=== PATIENT | male | born 1985 | race Caucasian/White ===

== ENCOUNTER 2019-09-08 14:27 | Inpatient (IN) | payer SELFPAY ==
[2019-09-08] VITALS (14 sets, daily range): BP systolic 126–162; BP diastolic 58–86; PULSE 83–111; RESP 14–20; TEMP 36.3–36.9; O2SAT 94–100; BMI 33.3
--- NOTE | ~2019-09-08 | CT_ITS ---
EXAMINATION: CT abdomen pelvis w con EXAM DATE: 09/08/2019 15:26 INDICATION: Right lower quadrant, epigastric pain. TECHNIQUE: Spiral CT of the abdomen and pelvis was performed following intravenous injection of 100 m L Omnipaque 350. Axial, coronal and sagittal images were reviewed. The dose-length product (DLP) fo r this examination was 857.43 mGy-cm. The exposure was tailored according to patient size (auto mA e xposure control), and iterative reconstruction (ASIR) was used as additional dose reduction technique . There is no prior study for comparison. FINDINGS: There is moderate amount of free intraperitoneal gas, mostly located in the nondependent an terior portion of the abdomen but with multiple small foci adjacent to the gastric cardia, where ther e is wall thickening, edema, probably perforated peptic ulcer disease in an atypical location. This i s best visualized on the coronal sequence. I discussed this finding with Mayur Basurto MD at 08/29 15:32 CDT. The liver, spleen, adrenal glands and pancreas are unremarkable. Gallbladder is unremarkable. No bi liary obstruction. Portal and splenic veins are patent. Kidneys enhance symmetrically. There is no hydronephrosis. The prostate is unremarkable. The bladder is unremarkable. There is no retroperi toneal or pelvic lymphadenopathy. The appendix is normal. Trace left pleural effusion, and small amount of free pelvic fluid. The hui g bases are unremarkable. The bones are unremarkable. IMPRESSION: Moderate amount of free intraperitoneal gas with source most likely the gastric cardia, m ost likely perforated peptic ulcer disease. Gastric cancer much less likely given patient's age. Reviewed, dictated and finalized at location A. IMPRESSION: Moderate amount of free intraperitoneal gas with source most likely the gastric cardia, most likely perforated peptic ulcer disease. Gastric cance r much less likely given patient's age.
[2019-09-08] MEDS: SODIUM CHLORIDE 0.9% IV 1,000 ML 999 ML IV CONT (14:48)
--- NOTE | 2019-09-08 14:50 | PC.NURSE ---
IVF initiated. Pt denies pain and nausea at present.
[2019-09-08 14:55] LABS: Basophils Absolute Auto 0.1 K/mm3 (0.0-0.1); Basophils Percent Auto 0.4 % (0.2-1.2); Eosinophils Percent Auto 0.1 % (0-4.4); Hematocrit 48.3 % (42.0-52.0); Hemoglobin 16.3 g/dL (14.0-18.0); Immature Granulocyte Absolute 0.09 K/mm3 (0.00-0.031); Immature Granulocyte Percent A 0.5 % (0-0.5); Lymphocytes Absolute Auto 1.24 K/mm3 (0.9-3.2); Lymphocytes Percent Auto 7.5 % (18.3-44.2); Mean Corpuscular HGB Conc 33.7 g/dl (32-36); Mean Corpuscular Hemoglobin 29.6 pg (26-34); Mean Corpuscular Volume 87.7 fl (80-100); Mean Platelet Volume 10.3 fl (7.4-10.4); Monocytes Absolute Auto 1.2 K/mm3 (0.1-0.6); Monocytes Percent Auto 7.3 % (2.6-8.5); Neutrophils Absolute Auto 13.9 K/mm3 (1.3-6.7); Neutrophils Percent Auto 84.2 % (45.5-73.1); Platelet Count Result 247 k/mm3 (150-375); Red Blood Count 5.51 M/mm3 (4.6-6.20); Red Cell Distribution Width 12.6 % (11.5-14.5); White Blood Count 16.6 K/mm3 (4.5-10.0)
[2019-09-08 14:59] LABS: Add Urine Microscopic? YES; Appearance Urine Clear (Clear); Bacteria Urine Trace /hpf; Bilirubin Urine Negative (Negative); Blood Urine Negative (Negative); Color Urine Yellow (Yellow); Glucose Urine UA Negative (Negative); Ketones Urine 2+ mg/dL (Negative); Leukocyte Esterase Ur Negative LEU/UL (Negative); Mucus Urine Rare /lpf; Nitrate Urine Negative (Negative); Protein Urine Negative (Negative); RBC Urine 0-2 /hpf (0-2); Specific Grav Ur 1.014 (1.001-1.035); Urobilinogen Urine Negative mg/dL (<2.0); WBC Urine 0-3 /hpf
[2019-09-08 15:06] LABS: Alanine Aminotransferase 17 U/L (4-50); Albumin Level 4.8 g/dL (3.5-5.1); Alkaline Phosphatase 57 U/L (38-126); Aspartate Amino Transferase 21 U/L (17-59); Bilirubin,Total 3.1 mg/dL (0.2-1.3); Blood Urea Nitrogen 7 mg/dL (9-20); Carbon Dioxide 24 mmol/L (22-30); Chloride 101 mmol/L (98-107); Estimated Glomerular Filt Rate > 60; Glucose 100 mg/dL (75-110); Lipase 56 U/L (23-300); Sodium 136 mmol/L (137-145)
--- NOTE | 2019-09-08 15:43 | ED.ABDPAIN ---
HPI - Abdominal Pain General Chief Complaint: Abdominal Pain Stated Complaint: Abd pain Time Seen by Provider: 09/08/19 14:32 History of Present Illness HPI narrative: Patient is a 34-year-old male who presents the ER with abdominal pain going on since yesterday. Bloating and uncomfortable. Mainly in the epigastrium. No aggravating or alleviating factors. Seen at an outside hospital and had x-rays performed that told him he had gas. Reports he took some Pepcid without relief pain. Symptoms persisted so he presented for further evaluation. No fevers or chills or sweats. Reports he is taking some ibuprofen for this but does not take NSAIDs habitually. Patient does drink alcohol regularly. Patient denies increase in flatus or belching. Related Data Home Medications Medication Instructions Recorded Confirmed No Home Medications 09/08/19 09/08/19 Allergies Allergy/AdvReac Type Severity Reaction Status Date / Time No Known Allergies Allergy Verified 09/08/19 14:40 Review of Systems Review of Systems: All systems reviewed & are unremarkable except as noted in HPI and below Constitutional: Constitutional: Denies chills, Denies fever(s) and Denies weakness ENT: Denies nasal congestion and Denies sore throat Cardiovascular: Cardiovascular: Denies chest pain and Denies radiating jaw, neck or arm pain Respiratory: Respiratory: Denies cough, Denies dyspnea and Denies wheezing Gastrointestinal: Gastrointestinal: Reports abdominal pain, Reports bloating, Denies heartburn, Denies diarrhea, Denies nausea and Denies vomiting PMFSH Past Medical History Medical History (Updated 09/08/19 @ 16:19 by Mayur Basurto MD) Healthy adult male Surgical History Surgical History (Updated 09/08/19 @ 16:14 by Mayur Basurto MD) No significant past surgical history Social History Social History (Updated 09/08/19 @ 16:15 by Mayur Basurto MD) Alcohol intake: current Gender identity (if verbalized by the patient): Male Exam Narrative: Exam Narrative: GENERAL: Well-appearing, well-nourished, and in no acute distress. HEAD: Normocephalic, atraumatic. ENT: Mucous membranes moist. CHEST: Clear to auscultation. No respiratory distress. HEART: Regular rate and rhythm. No murmur heard. Normal peripheral pulses. ABDOMEN: Soft, mild epigastric and right lower quadrant tenderness without rebound or guarding, nondistended, normal active bowel sounds. EXTREMITIES: Normal range of motion. No edema. SKIN: Warm, dry, no rash. NEURO: Alert and oriented x3. PSYCH: Normal mood and affect. Course Course Emergency Course: Patient informed of results. Surgery consulted. Patient to be n.p.o. Zosyn and protonix ordered. Vital Signs Vital signs: Vital Signs Temperature 98.0 F 09/08/19 14:33 Pulse Rate 101 H 09/08/19 14:33 Respiratory Rate 16 09/08/19 14:33 Blood Pressure 148/66 H 09/08/19 14:33 Pulse Oximetry 99 09/08/19 14:33 Temperature 98.0 F 09/08/19 14:33 Pulse Rate 83 09/08/19 15:46 Respiratory Rate 18 09/08/19 15:46 Blood Pressure 137/58 L 09/08/19 15:46 Pulse Oximetry 100 09/08/19 15:46 MDM - Abdominal Pain Lab Data Result diagrams: 09/08/19 14:46 09/08/19 14:46 Labs: Lab Results 09/08/19 09/08/19 09/08/19 Range/Units 14:46 14:46 14:46 WBC 16.6 H (4.5-10.0) K/mm3 RBC 5.51 (4.6-6.20) M/mm3 Hgb 16.3 (14.0-18.0) g/dL Hct 48.3 (42.0-52.0) % MCV 87.7 (80-100) fl MCH 29.6 (26-34) pg MCHC 33.7 (32-36) g/dl RDW 12.6 (11.5-14.5) % Plt Count 247 (150-375) k/mm3 MPV 10.3 (7.4-10.4) fl Immature Gran % (Auto) 0.5 (0-0.5) % Neut % (Auto) 84.2 H (45.5-73.1) % Lymph % (Auto) 7.5 L (18.3-44.2) % [place] % (Auto) 7.3 (2.6-8.5) % Eos % (Auto) 0.1 (0-4.4) % Baso % (Auto) 0.4 (0.2-1.2) % Lymph # (Auto) 1.24 (0.9-3.2) K/mm3 [place] # (Auto) 1.2 H (0.1-0.6) K/mm3 E
[2019-09-08] MEDS: PANTOPRAZOLE SODIUM IV 40 MG VIAL IV PUSH (16:02)
--- NOTE | 2019-09-08 16:32 | WPDANESEPP ---
Anes - Eval Pre Procedure Procedure: Exploratory Laparotomy Date/Time: 09/08/19 16:32 Surgeon: Dr Serrano Preop Diagnosis: Intraperitoneal free air, probable perforated peptic ulcer disease Pre Op Diagnosis: Perforated Ulcer Patient Data Age: 34 Gender: M Height: Weight: Last Vital Signs Temp 36.7 C 09/08/19 14:33 Pulse 83 09/08/19 15:46 Resp 18 09/08/19 15:46 BP 137/58 L 09/08/19 15:46 Pulse Ox 100 09/08/19 15:46 Allergies Allergy/AdvReac Type Severity Reaction Status Date / Time No Known Allergies Allergy Verified 09/08/19 14:40 Home Medications Medication Instructions Recorded Confirmed Type No Home Medications 09/08/19 09/08/19 History Laboratory Tests 09/08/19 09/08/19 09/08/19 14:46 14:46 14:46 WBC 16.6 K/mm3 H K/mm3 (4.5-10.0) RBC 5.51 M/mm3 M/mm3 (4.6-6.20) Hgb 16.3 g/dL g/dL (14.0-18.0) Hct 48.3 % % (42.0-52.0) MCV 87.7 fl fl (80-100) MCH 29.6 pg pg (26-34) MCHC 33.7 g/dl g/dl (32-36) RDW 12.6 % % (11.5-14.5) Plt Count 247 k/mm3 k/mm3 (150-375) MPV 10.3 fl fl (7.4-10.4) Immature Gran % (Auto) 0.5 % % (0-0.5) Neut % (Auto) 84.2 % H % (45.5-73.1) Lymph % (Auto) 7.5 % L % (18.3-44.2) [place] % (Auto) 7.3 % % (2.6-8.5) Eos % (Auto) 0.1 % % (0-4.4) Baso % (Auto) 0.4 % % (0.2-1.2) Lymph # (Auto) 1.24 K/mm3 K/mm3 (0.9-3.2) [place] # (Auto) 1.2 K/mm3 H K/mm3 (0.1-0.6) Eos # (Auto) 0.0 K/mm3 K/mm3 (0-0.3) Baso # (Auto) 0.1 K/mm3 K/mm3 (0.0-0.1) Abs Immat Gran (auto) 0.09 K/mm3 H K/mm3 (0.00-0.031) Absolute Neuts (auto) 13.9 K/mm3 H K/mm3 (1.3-6.7) Absolute Nucleated RBC 0.0 K/mm3 K/mm3 (0.0-0.012) Nucleated RBC % 0.0 % % (0.0-0.2) Sodium 136 mmol/L L mmol/L (137-145) Potassium 4.0 mmol/L mmol/L (3.4-5.0) Chloride 101 mmol/L mmol/L (98-107) Carbon Dioxide 24 mmol/L mmol/L (22-30) BUN 7 mg/dL L mg/dL (9-20) Creatinine 0.80 mg/dL mg/dL (0.7-1.3) Estim Creat Clear Calc Not Reportable Estimated GFR > 60 (59 - ) Glucose 100 mg/dL mg/dL (75-110) Calcium 9.0 mg/dL mg/dL (8.4-10.2) Total Bilirubin 3.1 mg/dL H mg/dL (0.2-1.3) AST 21 U/L U/L (17-59) ALT 17 U/L U/L (4-50) Alkaline Phosphatase 57 U/L U/L (38-126) Total Protein 8.0 g/dL g/dL (6.3-8.2) Albumin 4.8 g/dL g/dL (3.5-5.1) Lipase 56 U/L U/L (23-300) Urine Color Yellow (Yellow) Urine Appearance Clear (Clear) Urine pH 6.0 (5.0-9.0) Ur Specific [place] 1.014 (1.001-1.035) Urine Protein Negative mg/dL mg/dL (Negative) Urine Glucose (UA) Negative mg/dL mg/dL (Negative) Urine Ketones 2+ mg/dL H mg/dL (Negative) Ur Blood (Man) Negative (Negative) Urine Nitrate Negative (Negative) Urine Bilirubin Negative (Negative) Urine Urobilinogen Negative mg/dL mg/dL (<2.0) Leukocyte Esterase Rfl Negative MIKE/UL MIKE/UL (Negative) Urine RBC 0-2 /hpf /hpf (0-2) Urine WBC 0-3 /hpf /hpf Urine Bacteria Trace /hpf /hpf Urine Mucus Rare /lpf /lpf Patient hx anesthesia problems: none Family hx anesthesia problems: none PMFSH Past Medical History Medical History Healthy adult male Surgical History Surgical History No significant past surgical history Social History Social History Alcohol intake: current Gender identity (
--- NOTE | 2019-09-08 16:46 | PC.NURSE ---
Report to Daniel in PACU. States surgeon will evaluate patient in OR. No consent obtained at this time as unable to give informed consent. Preparing to assist pt to OR.
--- NOTE | 2019-09-08 17:11 | WPDANESEPPF ---
Anes - Initial Pre Proc Eval Procedure: Operation Date: 09/08/19 17:30 Proposed Procedures p Exploratory Laparotomy, Pos Bowel Resec - Andie Serrano MD Date/Time: 09/08/19 17:11 Surgeon: Andie Serrano MD Pre Op Diagnosis: Perforated Ulcer Patient Data Age: 34 Gender: M Height: Weight: Last Vital Signs Temp 36.7 C 09/08/19 14:33 Pulse 83 09/08/19 15:46 Resp 18 09/08/19 15:46 BP 137/58 L 09/08/19 15:46 Pulse Ox 100 09/08/19 15:46 Allergies Allergy/AdvReac Type Severity Reaction Status Date / Time No Known Allergies Allergy Verified 09/08/19 14:40 Home Medications Medication Instructions Recorded Confirmed Type No Home Medications 09/08/19 09/08/19 History Laboratory Tests 09/08/19 09/08/19 09/08/19 14:46 14:46 14:46 WBC 16.6 K/mm3 H K/mm3 (4.5-10.0) RBC 5.51 M/mm3 M/mm3 (4.6-6.20) Hgb 16.3 g/dL g/dL (14.0-18.0) Hct 48.3 % % (42.0-52.0) MCV 87.7 fl fl (80-100) MCH 29.6 pg pg (26-34) MCHC 33.7 g/dl g/dl (32-36) RDW 12.6 % % (11.5-14.5) Plt Count 247 k/mm3 k/mm3 (150-375) MPV 10.3 fl fl (7.4-10.4) Immature Gran % (Auto) 0.5 % % (0-0.5) Neut % (Auto) 84.2 % H % (45.5-73.1) Lymph % (Auto) 7.5 % L % (18.3-44.2) [place] % (Auto) 7.3 % % (2.6-8.5) Eos % (Auto) 0.1 % % (0-4.4) Baso % (Auto) 0.4 % % (0.2-1.2) Lymph # (Auto) 1.24 K/mm3 K/mm3 (0.9-3.2) [place] # (Auto) 1.2 K/mm3 H K/mm3 (0.1-0.6) Eos # (Auto) 0.0 K/mm3 K/mm3 (0-0.3) Baso # (Auto) 0.1 K/mm3 K/mm3 (0.0-0.1) Abs Immat Gran (auto) 0.09 K/mm3 H K/mm3 (0.00-0.031) Absolute Neuts (auto) 13.9 K/mm3 H K/mm3 (1.3-6.7) Absolute Nucleated RBC 0.0 K/mm3 K/mm3 (0.0-0.012) Nucleated RBC % 0.0 % % (0.0-0.2) Sodium 136 mmol/L L mmol/L (137-145) Potassium 4.0 mmol/L mmol/L (3.4-5.0) Chloride 101 mmol/L mmol/L (98-107) Carbon Dioxide 24 mmol/L mmol/L (22-30) BUN 7 mg/dL L mg/dL (9-20) Creatinine 0.80 mg/dL mg/dL (0.7-1.3) Estim Creat Clear Calc Not Reportable Estimated GFR > 60 (59 - ) Glucose 100 mg/dL mg/dL (75-110) Calcium 9.0 mg/dL mg/dL (8.4-10.2) Total Bilirubin 3.1 mg/dL H mg/dL (0.2-1.3) AST 21 U/L U/L (17-59) ALT 17 U/L U/L (4-50) Alkaline Phosphatase 57 U/L U/L (38-126) Total Protein 8.0 g/dL g/dL (6.3-8.2) Albumin 4.8 g/dL g/dL (3.5-5.1) Lipase 56 U/L U/L (23-300) Urine Color Yellow (Yellow) Urine Appearance Clear (Clear) Urine pH 6.0 (5.0-9.0) Ur Specific [place] 1.014 (1.001-1.035) Urine Protein Negative mg/dL mg/dL (Negative) Urine Glucose (UA) Negative mg/dL mg/dL (Negative) Urine Ketones 2+ mg/dL H mg/dL (Negative) Ur Blood (Man) Negative (Negative) Urine Nitrate Negative (Negative) Urine Bilirubin Negative (Negative) Urine Urobilinogen Negative mg/dL mg/dL (<2.0) Leukocyte Esterase Rfl Negative MIKE/UL MIKE/UL (Negative) Urine RBC 0-2 /hpf /hpf (0-2) Urine WBC 0-3 /hpf /hpf Urine Bacteria Trace /hpf /hpf Urine Mucus Rare /lpf /lpf Patient hx anesthesia problems: none Family hx anesthesia problems: none PMFSH Past Medical History Medical History (Updated 09/08/19 @ 17:12 by Gage Loza MD) ETOH abuse Overweight Surgical History Surgical History No significant past surgical history Social History Social History Alcohol intake:
[2019-09-08] MEDS: LACTATED RINGERS 1,000 ML 30 ML IV CONT ×2 (17:25→18:55)
--- NOTE | 2019-09-08 17:26 | PM.IMHP ---
H&P: HPI History of Present Illness Chief complaint: Perforated Ulcer Narrative: Uriah Garner is a 34 year old male presenting to ED c/o severe upper abd pain over last day. Pt reports pain is assoc c bloating, nausea. Pt reports pain is constant and progressively worsening. Pt denies any previous episodes. Review of Systems Constitutional: Constitutional: Denies body ache(s), Denies chills, Reports fatigue, Reports lethargy and Denies weakness Eyes: Eyes: Denies no additional eye complaints and Denies change in vision ENT: Reports Normal hearing present, Denies headache(s), Denies hearing loss, Denies nasal discharge and Denies sore throat Cardiovascular: Cardiovascular: Denies chest pain, Denies palpitations and Denies dyspnea Respiratory: Respiratory: Denies cough and Denies dyspnea Gastrointestinal: Gastrointestinal: Reports abdominal pain, Denies melena, Reports bloating, Denies hematochezia, Denies change in stool character, Denies constipation, Reports heartburn, Denies diarrhea, Reports nausea, Denies vomiting and Denies hematemesis Genitourinary: Genitourinary: Denies dysuria, Denies urinary frequency and Denies urinary urgency Musculoskeletal: Musculoskeletal: Reports no additional musculoskeletal complaints Integumentary/Breasts: Skin/Breast: Denies pruritus, Denies lesions and Denies wounds Neurologic: Denies confusion and Denies headache(s) Psychiatric: Psychiatric: Reports no additional psychiatric complaints and Denies confusion Endocrine: Endocrine: Reports no additional endocrine complaints, Denies fatigue and Denies palpitations Hematologic/Lymphatic: Hematologic/Lymphatic: Reports no additional hematologic/lymphatic complaints Allergic/Immunologic: Allergic/Immunologic: Reports no additional allergic/immunologic complaints [facility] Past Medical History Medical History ETOH abuse Overweight Surgical History Surgical History No significant past surgical history Social History Social History Alcohol intake: current Gender identity (if verbalized by the patient): Male Meds Home Medications and Allergies Home Medications Medication Instructions Recorded Confirmed Type No Home Medications 09/08/19 09/08/19 History Allergies Allergy/AdvReac Type Severity Reaction Status Date / Time No Known Allergies Allergy Verified 09/08/19 14:40 Vital Signs Vital Signs - 24 hr 09/08/19 14:33 09/08/19 15:46 09/08/19 17:13 Temperature 36.7 C 36.3 C L Pulse Rate 101 H 83 86 Respiratory Rate 16 18 14 Blood Pressure 148/66 H 137/58 L 139/78 Pulse Oximetry 99 100 98 Exam Const: General: in distress mild Orientation/consciousness: patient oriented x3 and No confusion HENMT: Head: normal to inspection, normocephalic and atraumatic Mouth: Yes Normal oral and palatal mucosa present and Yes moist mucous membranes Teeth and gingiva: dentition normal Eyes: Conjunctivae: conjunctivae normal Pupils: Equal, round and reactive pupils present EOM: EOMs intact bilaterally Neck: Neck: normal visual inspection, full ROM, no lymphadenopathy, trachea midline and supple Lymphatic: no lymphadenopathy noted Chest: Chest palpation & inspection: normal inspection of the chest Resp: Effort & Inspection: normal respiratory effort Auscultation: clear to auscultation bilaterally Cardio: Jugular venous distension: no JVD Rate: regular rate Rhythm: regular rhythm Heart sounds: S1 normal heart sound present and S2 normal heart sound present Peripheral pulses: Peripheral pulses 2+ throughout GI: Inspection: normal to inspection GI Palp: Yes Soft to palpation, Yes Tenderness to palpation present (GI), Yes Guarding due to palpation present (GI), No Rigid due to palpation, No Hernia present and No Rebound tenderness present Auscultati
--- NOTE | 2019-09-08 18:53 | PM.PROC ---
Procedure Note - Detailed Date of procedure: 09/08/19 Pre-op diagnosis: Perforated Ulcer perforated viscus Post-op diagnosis: other (perforated gastric ulcer) Procedure performed: exploratory laparatomy, mobilization stomach, duodenum, repair of perforated gastric ulcer (post cardia) c omental patch Description of procedure: Patient was taken to the operating room and placed in the supine position. After adequate induction of general anesthesia, the patient was prepped and draped in the normal sterile fashion. A time-out was then done to verify the patient's identity as well as the procedure being performed. I began by making a generous upper midline incision. This was carried through the subcutaneous tissue into the abdominal cavity. Once into the abdominal cavity, a moderate amount of free air was noted. It was also noted that there was no intra-abdominal fluid or succus. I began by mobilizing the stomach. The stomach was noted to be largely unremarkable. Around the area of the posterior cardia there was some inflammation and a small serosal opening. I then mobilized the duodenum and it was noted to be normal. The NG tube that was placed by Anesthesia was noted to be in good position in the stomach. I then requested methylene blue dye to be placed through the NG tube. There was noted to be no blue dye leakage with this test. We repeated the test again and again no leakage of dye was noted. At this point, I did run the small intestine which was noted to be unremarkable. I did go ahead and over sewed this pinpoint opening in the posterior cardia. An omental patch was then placed over this repair. I then made a small incision in the left mid abdomen and placed a 10 flat KATTY drain in the left upper quadrant near the area of our repair. At this point, I closed the fascia with looped 0 PDS suture and the skin was closed with skin venessa. Sterile dressing was then placed on the incision. The patient tolerated the procedure well and will be transferred to the recovery room in stable condition. Implants: none Anesthesia: GETA Surgeon: Andie Serrano MD Estimated blood loss (mL): 50 Drains: Yes Packing: No Pathology: none sent Complications: No immediate complications Condition: stable Disposition: PACU Findings: moderate free air, no intraabdominal fluid, perforated gastric ulcer in posterior cardia
--- NOTE | 2019-09-08 21:16 | ADMGEN ---
This patient, Uriah Garner, was admitted to 2 Medical Room 254-01. Patient/family oriented to hospital policies and general routines including ID bracelet, bed and alarms, visiting hours, pain management, procedures, bathroom and other care routines, personal items, smoking policy, room service/diet, and visiting hours. Valuables list has been completed. Information on how to activate the Rapid Response Team has been discussed. Patient/Family are encouraged to report perceived risks to care and to ask questions if they do not understand what they are told or what they should do.
[2019-09-08] MEDS: DEXTROSE 5%/LACTATED RINGERS 1,000 ML 100 ML IV CONT (21:23)
[2019-09-09] MEDS: MORPHINE SULFATE 2 MG/ML INJ IV PUSH ×3 (02:08→23:59)
[2019-09-09 02:45] VITALS: BP 136/75; PULSE 112; RESP 18; TEMP 37.1; O2SAT 96
[2019-09-09 05:23] LABS: Hematocrit 42.3 % (42.0-52.0); Hemoglobin 14.4 g/dL (14.0-18.0); Mean Corpuscular Hemoglobin 29.8 pg (26-34); Mean Corpuscular Volume 87.4 fl (80-100); Platelet Count Result 233 k/mm3 (150-375); Red Blood Count 4.84 M/mm3 (4.6-6.20); Red Cell Distribution Width 12.8 % (11.5-14.5); White Blood Count 12.5 K/mm3 (4.5-10.0)
[2019-09-09 05:35] LABS: Blood Urea Nitrogen 6 mg/dL (9-20); Calcium 8.3 mg/dL (8.4-10.2); Carbon Dioxide 26 mmol/L (22-30); Chloride 102 mmol/L (98-107); Estimated CRCL calculation 177 ml/min; Estimated Glomerular Filt Rate > 60; Glucose 123 mg/dL (75-110); Potassium 4.2 mmol/L (3.4-5.0); Sodium 134 mmol/L (137-145)
[2019-09-09 06:00] VITALS: BP 130/60; PULSE 98; RESP 20; TEMP 36.3; O2SAT 98
[2019-09-09] MEDS: DEXTROSE 5%/LACTATED RINGERS 1,000 ML 100 ML IV CONT ×2 (07:25→17:25)
[2019-09-09] MEDS: PANTOPRAZOLE SODIUM IV 40 MG VIAL IV PUSH ×2 (08:14→20:50)
--- NOTE | 2019-09-09 09:04 | PM.PNGS ---
Progress Note: A&P Assessment and Plan (1) Perforated gastric ulcer: Code(s): K25.5 - Chronic or unspecified gastric ulcer with perforation Status: Acute Assessment and Plan: cont NG decompression, IV abx, PPI, plan for UGI on 09/10 (2) ETOH abuse: Code(s): F10.10 - Alcohol abuse, uncomplicated Status: Acute Assessment and Plan: ETOH w/d precautions Subjective Subjective Date/Time Seen: 09/09/19 09:04 feels pretty good this am, some incisional soreness, reports preop pain largely resolved Review of Systems Constitutional: Constitutional: Denies chills and Reports fatigue Cardiovascular: Cardiovascular: Denies chest pain and Denies palpitations Respiratory: Respiratory: Denies dyspnea Gastrointestinal: Gastrointestinal: Reports abdominal pain, Denies bloating, Denies constipation, Denies heartburn, Denies diarrhea, Denies nausea and Denies vomiting Exam Const: General: no acute distress Resp: Auscultation: clear to auscultation bilaterally Cardio: Rate: regular rate Rhythm: regular rhythm GI: Other: S, sl dist, christianne TTP, incision C/D/I, KATTY c s/s output Objective Data Vital Signs Vital Signs: Vital Signs - 24 hr 09/08/19 14:33 09/08/19 15:46 09/08/19 17:13 Temperature 36.7 C 36.3 C L Pulse Rate 101 H 83 86 Respiratory Rate 16 18 14 Blood Pressure 148/66 H 137/58 L 139/78 Pulse Oximetry 99 100 98 09/08/19 18:55 09/08/19 19:00 09/08/19 19:15 Temperature 36.3 C L Pulse Rate 86 85 92 Respiratory Rate 20 19 18 Blood Pressure 147/76 H 162/86 H 143/78 H Pulse Oximetry 100 100 100 09/08/19 19:30 09/08/19 19:45 09/08/19 20:00 Temperature Pulse Rate 94 92 98 Respiratory Rate 20 18 18 Blood Pressure 147/82 H 147/76 H 132/82 Pulse Oximetry 94 94 94 09/08/19 20:15 09/08/19 21:00 09/08/19 21:15 Temperature 36.7 C 36.8 C Pulse Rate 95 111 H 108 H Respiratory Rate 17 18 18 Blood Pressure 126/82 128/75 143/82 H Pulse Oximetry 94 96 96 09/08/19 21:45 09/08/19 22:45 09/09/19 02:45 Temperature 36.4 C L 36.9 C 37.1 C Pulse Rate 103 H 95 112 H Respiratory Rate 18 20 18 Blood Pressure 133/81 128/73 136/75 Pulse Oximetry 96 98 96 09/09/19 06:00 Temperature 36.3 C L Pulse Rate 98 Respiratory Rate 20 Blood Pressure 130/60 Pulse Oximetry 98 Intake/Output Intake/Output: Intake & Output 09/06/19 09/07/19 09/08/19 09/09/19 23:59 23:59 23:59 23:59 Intake Total 1650 1100 Output Total 290 1170 Balance 1360 -70 Meds/Results Medications: Active Medications Generic Name Dose Route Start Last Admin Trade Name Freq PRN Reason Stop Dose Admin Dextrose/Lactated Ringer's 1,000 mls @ 100 mls/hr 09/08/19 18:45 09/09/19 07:25 Dextrose 5%/Lactated Ringers IV CONT 100 mls/hr .Q10H HERMINIA Administration Piperacillin/Tazobactam/Dextrose 3.375 gm in 50 mls @ 100 mls/hr 09/09/19 00:00 09/09/19 06:30 Zosyn 3.375 Gm/D5w 50ml Pm IVPB Infused Q6HR HERMINIA Infusion Morphine Sulfate 2 mg 09/08/19 18:45 09/09/19 02:08 Morphine Sulfate Inj IV PUSH 2 mg Q4H PRN Administration Pain Rated 7-10 Pantoprazole Sodium 40 mg 09/09/19 09:00 09/09/19 08:14 Protonix Iv IV PUSH 40 mg Q12HR HERMINIA Administration Radiology Results: ITS Impressions Abdomen/Pelvis CT 09/08/19 15:26 IMPRESSION: Moderate amount of free intraperitoneal gas with source most likely the gastric cardia, most likely perforated peptic ulcer disease. Gastric cancer much less likely given patient's age. Labs Labs: Laboratory Results - last 24 hr 09/08/19 09/08/19 09/08/19 14:46 14:46 14:46 WBC 16.6 H RBC 5.51 Hgb 16.3 Hct 48.3 MCV 87.7 MCH 29.6 MCHC 33.7 RDW 12.6 Plt Count 247 MPV 10.3 Immature Gran % (Auto) 0.5 Neut % (Auto) 84.2 H Lymph % (Auto) 7.5 L [place] % (Auto) 7.3 Eos % (Auto) 0.1 Baso % (Auto) 0.4 Lymph # (Auto) 1.24 [place] # (Auto) 1.2 H Eos # (Auto) 0.0 B
[2019-09-09 10:00] VITALS: BP 122/66; PULSE 98; RESP 18; TEMP 37.1; O2SAT 97
[2019-09-09 14:00] VITALS: BP 134/73; PULSE 95; RESP 16; TEMP 36.5; O2SAT 98
[2019-09-09 18:00] VITALS: BP 155/81; PULSE 89; RESP 16; TEMP 37.2; O2SAT 99
[2019-09-09 22:00] VITALS: BP 129/75; PULSE 93; RESP 18; TEMP 36.7; O2SAT 98
[2019-09-10] MEDS: DEXTROSE 5%/LACTATED RINGERS 1,000 ML 100 ML IV CONT ×2 (04:28→15:36)
[2019-09-10 05:03] LABS: Hemoglobin 13.9 g/dL (14.0-18.0); Mean Corpuscular HGB Conc 33.9 g/dl (32-36); Mean Corpuscular Hemoglobin 29.5 pg (26-34); Mean Platelet Volume 9.6 fl (7.4-10.4); Platelet Count Result 224 k/mm3 (150-375); Red Blood Count 4.71 M/mm3 (4.6-6.20); Red Cell Distribution Width 12.5 % (11.5-14.5); White Blood Count 10.2 K/mm3 (4.5-10.0)
[2019-09-10 05:19] LABS: Blood Urea Nitrogen 5 mg/dL (9-20); Calcium 8.1 mg/dL (8.4-10.2); Carbon Dioxide 27 mmol/L (22-30); Chloride 102 mmol/L (98-107); Estimated CRCL calculation 154 ml/min; Estimated Glomerular Filt Rate > 60; Glucose 106 mg/dL (75-110); Potassium 3.7 mmol/L (3.4-5.0); Sodium 136 mmol/L (137-145)
[2019-09-10 05:57] VITALS: BP 111/71; PULSE 92; RESP 18; TEMP 36.5; O2SAT 96
[2019-09-10] MEDS: PANTOPRAZOLE SODIUM IV 40 MG VIAL IV PUSH ×2 (08:23→20:50)
--- NOTE | 2019-09-10 08:44 | PM.PNGS ---
Progress Note: A&P Assessment and Plan (1) Perforated gastric ulcer: Code(s): K25.5 - Chronic or unspecified gastric ulcer with perforation Status: Acute Assessment and Plan: awaiting return of bowel function. Patient seems to be improving but still has ileus from peritonitis and perforation. Continue NG suction, KATTY drain, IV fluids. Recheck labs and exam again tomorrow. (2) ETOH abuse: Code(s): F10.10 - Alcohol abuse, uncomplicated Status: Acute Assessment and Plan: No signs of withdrawal as yet. Will consult hospitalist to evaluate and treat should these appear. Subjective Subjective Date/Time Seen: 09/10/19 08:44 Post Op day: 2 Patient reports: no new complaints, pain is less, no flatus, no bowel movement and afebrile Review of Systems Review of Systems: All systems reviewed & are unremarkable except as noted in HPI and below ( HPI) Exam Const: General: comfortable and no acute distress; No confusion Orientation/consciousness: patient oriented x3 and No confusion GI: Inspection: non-distended and incision ( dressing dry and intact) GI Palp: Yes Soft to palpation, Yes Tenderness to palpation present (GI), No Guarding due to palpation present (GI) and No Rebound tenderness present Auscultation: Hypoactive bowel sounds present Neuro: General: patient oriented x3, no focal motor deficits and No confusion Extrem: General: no calf tenderness and no edema Psych: Affect: normal affect Insight: Good insight present (Psych) Judgement: Good judgement present (Psych) Objective Data Vital Signs Vital Signs: Vital Signs - 24 hr 09/09/19 10:00 09/09/19 14:00 09/09/19 18:00 Temperature 37.1 C 36.5 C 37.2 C Pulse Rate 98 95 89 Respiratory Rate 18 16 16 Blood Pressure 122/66 134/73 155/81 H Pulse Oximetry 97 98 99 09/09/19 22:00 09/10/19 05:57 Temperature 36.7 C 36.5 C Pulse Rate 93 92 Respiratory Rate 18 18 Blood Pressure 129/75 111/71 Pulse Oximetry 98 96 Intake/Output Intake/Output: Intake & Output 09/07/19 09/08/19 09/09/19 09/10/19 23:59 23:59 23:59 23:59 Intake Total 1650 2350 1100 Output Total 290 2450 1620 Balance 1360 -100 -520 Meds/Results Medications: Active Medications Generic Name Dose Route Start Last Admin Trade Name Freq PRN Reason Stop Dose Admin Dextrose/Lactated Ringer's 1,000 mls @ 100 mls/hr 09/08/19 18:45 09/10/19 04:28 Dextrose 5%/Lactated Ringers IV CONT 100 mls/hr .Q10H HERMINIA Administration Piperacillin/Tazobactam/Dextrose 3.375 gm in 50 mls @ 100 mls/hr 09/09/19 00:00 09/10/19 06:15 Zosyn 3.375 Gm/D5w 50ml Pm IVPB Infused Q6HR HERMINIA Infusion Morphine Sulfate 2 mg 09/08/19 18:45 09/09/19 23:59 Morphine Sulfate Inj IV PUSH 2 mg Q4H PRN Administration Pain Rated 7-10 Pantoprazole Sodium 40 mg 09/09/19 09:00 09/10/19 08:23 Protonix Iv IV PUSH 40 mg Q12HR HERMINIA Administration Radiology Results: ITS Impressions Abdomen/Pelvis CT 09/08/19 15:26 IMPRESSION: Moderate amount of free intraperitoneal gas with source most likely the gastric cardia, most likely perforated peptic ulcer disease. Gastric cancer much less likely given patient's age. Labs Labs: Laboratory Results - last 24 hr 09/10/19 09/10/19 04:52 04:52 WBC 10.2 H RBC 4.71 Hgb 13.9 L Hct 41.0 L MCV 87.0 MCH 29.5 MCHC 33.9 RDW 12.5 Plt Count 224 MPV 9.6 Sodium 136 L Potassium 3.7 Chloride 102 Carbon Dioxide 27 BUN 5 L Creatinine 0.70 Estim Creat Clear Calc 154 Estimated GFR > 60 Glucose 106 Calcium 8.1 L
--- NOTE | 2019-09-10 11:28 | PM.IMCN ---
Assessment and Plan Assessment and plan (1) Perforated gastric ulcer: Code(s): K25.5 - Chronic or unspecified gastric ulcer with perforation Status: Acute Assessment and Plan: Patient with gastric ulcer s/p repair. Appears to be recovering well. Currently on Protonix. Encouraged patient to be up to the chair. (2) ETOH abuse: Code(s): F10.10 - Alcohol abuse, uncomplicated Status: Acute Assessment and Plan: No evidence of withdrawal symptoms and no hx of such. Will add Thiamine and Folate. Start CIWA protocol. Ativan available as needed for elevated CIWA score. Educated him about the benefits of limiting alcohol use. (3) Tobacco use: Code(s): Z72.0 - Tobacco use Status: Acute Assessment and Plan: Patient has been educated about the benefits of abstaining from all tobacco products. Additional Plan Will continue to follow along with you. Thank you so much for allowing me to be a part of this patient's care. HPI Data of Consult Consult date: 09/11/19 Requesting Physician: Andie Serrano MD Primary Care Provider: UNKNOWN,DOCTOR Consult Narrative Narrative: Uriah Garner is a 34 year old healthy male here for perforated gastric ulcer and were consulted for monitoring for alcohol withdrawal. Patient presented on September 07 and found to have perforated gastric ulcer. He underwent exploratory laparatomy with repair of perforated gastric ulcer (post cardia) using an omental patch on September 07. He tolerated this well. He has no hx of ulcers or GERD. Uses NSAIDs rarely. No intermittent abd pain prior to this admission. No melana but has occasioanl BRBPR that he feels is related to hemorrhoids. Currently he feels better. No abd pain unless he coughs. not having significant cough however. No CP or SOB. No fever or chills. +flatus but no BMs. Drinks 8-9 beers per day since the COVID shut down. He normally uses 6-7 beers about 4x/week. No hx of withdrawal symptoms. No seizure hx. Review of Systems Review of Systems: All systems reviewed & are unremarkable except as noted in HPI and below PMFSH Past Medical History Medical History ETOH abuse Overweight Surgical History Surgical History No significant past surgical history Family History Family History Grandparent Lung cancer Cancer Social History Social History (Updated 09/10/19 @ 11:54 by Jorge Wilhelm MD) Social History: Lives alone. Single. Quit smoking 6 months ago but now using smokeless tobacco. Alcohol use as above. Full code. Smoking packs per day: 1 Smoking cigarettes per day: 20.0 Years smoked: 16 Smoking pack-years: 16.00 Smoking status: Former smoker Tobacco type: cigarettes Alcohol intake: current Drinks per week: 18 Substance use: never Substance use type: does not use Gender identity (if verbalized by the patient): Male Spiritual care concerns: No Meds Home Medications and Allergies Home Medications Medication Instructions Recorded Confirmed Type No Home Medications 09/08/19 09/08/19 History Allergies Allergy/AdvReac Type Severity Reaction Status Date / Time No Known Allergies Allergy Verified 09/08/19 14:40 Vital Signs Vital Signs - 24 hr 09/09/19 14:00 09/09/19 18:00 09/09/19 22:00 Temperature 97.7 F 99 F 98.1 F Pulse Rate 95 89 93 Respiratory Rate 16 16 18 Blood Pressure 134/73 155/81 H 129/75 Pulse Oximetry 98 99 98 09/10/19 05:57 Temperature 97.7 F Pulse Rate 92 Respiratory Rate 18 Blood Pressure 111/71 Pulse Oximetry 96 Exam Narrative: Exam Narrative: Gen - NARD lying semi-recumbent in bed HEENT - NC/AT, PEERL, sclera clear, EOMI. NGT seucred with yellowish-brown fluid in tubing. MMM. Neck - supple.
[2019-09-10] MEDS: THIAMINE HCL 200 MG/2 ML VIAL 100 MG IV PUSH (13:03)
[2019-09-10 14:00] VITALS: BP 144/79; PULSE 78; RESP 20; TEMP 36.7; O2SAT 99
[2019-09-10] MEDS: FOLIC ACID 1 MG/0.2 ML INJ IV PUSH (14:04)
[2019-09-10 22:00] VITALS: BP 136/73; PULSE 75; RESP 18; TEMP 36.6; O2SAT 100
[2019-09-11] MEDS: DEXTROSE 5%/LACTATED RINGERS 1,000 ML 100 ML IV CONT ×2 (02:42→16:30)
[2019-09-11 05:23] LABS: Blood Urea Nitrogen 7 mg/dL (9-20); Calcium 8.4 mg/dL (8.4-10.2); Carbon Dioxide 25 mmol/L (22-30); Chloride 104 mmol/L (98-107); Estimated CRCL calculation 177 ml/min; Estimated Glomerular Filt Rate > 60; Glucose 104 mg/dL (75-110); Hematocrit 42.3 % (42.0-52.0); Mean Corpuscular HGB Conc 33.1 g/dl (32-36); Mean Corpuscular Hemoglobin 29.4 pg (26-34); Mean Corpuscular Volume 88.9 fl (80-100); Mean Platelet Volume 10.3 fl (7.4-10.4); Platelet Count Result 268 k/mm3 (150-375); Potassium 3.6 mmol/L (3.4-5.0); Red Blood Count 4.76 M/mm3 (4.6-6.20); Red Cell Distribution Width 12.3 % (11.5-14.5); Sodium 137 mmol/L (137-145); White Blood Count 8.1 K/mm3 (4.5-10.0)
[2019-09-11 05:53] VITALS: BP 129/74; PULSE 77; RESP 20; TEMP 36.2; O2SAT 97
[2019-09-11] MEDS: PANTOPRAZOLE SODIUM IV 40 MG VIAL IV PUSH ×2 (09:29→20:35)
[2019-09-11] MEDS: THIAMINE HCL 200 MG/2 ML VIAL 100 MG IV PUSH (09:35)
[2019-09-11] MEDS: FOLIC ACID 1 MG/0.2 ML INJ IV PUSH (10:00)
--- NOTE | 2019-09-11 10:13 | PM.PNGS ---
Progress Note: A&P Assessment and Plan (1) Perforated gastric ulcer: Code(s): K25.5 - Chronic or unspecified gastric ulcer with perforation Status: Acute Assessment and Plan: Continue bowel rest, NG tube and IV antibiotics. Ileus is starting to resolve. Will DC [place] catheter and start dressing changes today. KATTY drain has minimal output and is serous fluid. Probably remove that tomorrow. He is doing well. (2) ETOH abuse: Code(s): F10.10 - Alcohol abuse, uncomplicated Status: Acute Assessment and Plan: Appreciate hospitalist consultation. Patient on Ativan. (3) Tobacco use: Code(s): Z72.0 - Tobacco use Status: Acute Subjective Subjective Date/Time Seen: 09/11/19 10:13 Post Op day: 3 Patient reports: no new complaints, feels better, flatus, no bowel movement and afebrile Review of Systems Review of Systems: All systems reviewed & are unremarkable except as noted in HPI and below (HPI) Constitutional: Constitutional: Denies body ache(s), Denies chills, Denies excessive sweating and Denies fever(s) Gastrointestinal: Gastrointestinal: Denies nausea and Denies vomiting Exam Const: General: comfortable and no acute distress; No confusion Orientation/consciousness: patient oriented x3 and No confusion GI: Inspection: non-distended and incision (Dressing dry and intact. serous drainage from KATTY drain, minimal output) GI Palp: Yes Soft to palpation, Yes Tenderness to palpation present (GI), No Guarding due to palpation present (GI) and No Rebound tenderness present Auscultation: Hypoactive bowel sounds present Neuro: General: patient oriented x3, no focal motor deficits and No confusion Extrem: General: no calf tenderness and no edema Psych: Affect: normal affect Insight: Good insight present (Psych) Judgement: Good judgement present (Psych) Objective Data Vital Signs Vital Signs: Vital Signs - 24 hr 09/10/19 14:00 09/10/19 22:00 09/11/19 05:53 Temperature 36.7 C 36.6 C 36.2 C L Pulse Rate 78 75 77 Respiratory Rate 20 18 20 Blood Pressure 144/79 H 136/73 129/74 Pulse Oximetry 99 100 97 Intake/Output Intake/Output: Intake & Output 09/08/19 09/09/19 09/10/19 09/11/19 23:59 23:59 23:59 23:59 Intake Total 1650 2350 2320 1100 Output Total 290 2450 3380 1055 Balance 1360 -100 -1060 45 Meds/Results Medications: Active Medications Generic Name Dose Route Start Last Admin Trade Name Freq PRN Reason Stop Dose Admin Folic Acid 1 mg 09/11/19 09:00 09/11/19 10:00 Folic Acid Inj IV PUSH 1 mg QAM HERMINIA Administration Dextrose/Lactated Ringer's 1,000 mls @ 100 mls/hr 09/08/19 18:45 09/11/19 02:42 Dextrose 5%/Lactated Ringers IV CONT 100 mls/hr .Q10H HERMINIA Administration Piperacillin/Tazobactam/Dextrose 3.375 gm in 50 mls @ 100 mls/hr 09/09/19 00:00 09/11/19 07:25 Zosyn 3.375 Gm/D5w 50ml Pm IVPB Infused Q6HR HERMINIA Infusion Lorazepam 1 mg 09/10/19 12:45 Ativan Inj IV PUSH Q6H PRN For CIWA >10 Morphine Sulfate 2 mg 09/08/19 18:45 09/09/19 23:59 Morphine Sulfate Inj IV PUSH 2 mg Q4H PRN Administration Pain Rated 7-10 Pantoprazole Sodium 40 mg 09/09/19 09:00 09/11/19 09:29 Protonix Iv IV PUSH 40 mg Q12HR HERMINIA Administration Thiamine HCl 100 mg 09/11/19 09:00 09/11/19 09:35 Thiamine Hcl Inj IV PUSH 100 mg QAM HERMINIA Administration Radiology Results: ITS Impressions Abdomen/Pelvis CT 09/08/19 15:26 IMPRESSION: Moderate amount of free intraperitoneal gas with source most likely the gastric cardia, most likely perforated peptic ulcer disease. Gastric cancer much less likely given patient's age. Labs Labs: Laboratory Results - last 24 hr 09/11/19 09/11/19 04:47 04:47 WBC 8.1 RBC 4.76 Hgb 14.0 Hct 42.3 MCV 88.9 MCH 29.4 MCHC 33.1 RDW 12.3 Plt Count 268 MPV 10.3 Sodium 137 Potassium 3.6 Chloride 104 Carbon Dioxide 25 BU
[2019-09-11 14:00] VITALS: BP 124/74; PULSE 77; RESP 16; TEMP 36.8; O2SAT 100
--- NOTE | 2019-09-11 17:52 | PM.IMPN ---
Progress Note: A&P Assessment and Plan (1) Perforated gastric ulcer: Code(s): K25.5 - Chronic or unspecified gastric ulcer with perforation Status: Acute Assessment and Plan: Patient with gastric ulcer s/p repair. Appears to be recovering well. Pain controlled. Encouraged patient to walk in halls. Continue Protonix. (2) ETOH abuse: Code(s): F10.10 - Alcohol abuse, uncomplicated Status: Acute Assessment and Plan: No evidence of withdrawal symptoms and no hx of such. CIWA score remains at 0. Continue Thiamine and Folate. Ativan available as needed for elevated CIWA score. Patient has been educated about the benefits of limiting alcohol use. (3) Tobacco use: Code(s): Z72.0 - Tobacco use Status: Acute Assessment and Plan: Patient has been educated about the benefits of abstaining from all tobacco products. Subjective Date/time seen: 09/11/19 17:52 Interval history: 34yo male here for perforated gastric ulcer. No problems overnight. Passing flatus but no bowel movements. Has been up walking to the bathroom. He is tolerating the tube being clamped for extended periods. He denies any nausea or vomiting. Abdominal pains well controlled. No tremors or diaphoresis. [place] removed and patient has been voiding normally. Exam Narrative: Exam Narrative: Gen - NARD sitting up in a chair Chest - CTA bilaterally, nml RR CV - RRR S1/S2 Abd -soft. Midline dressing is clean and dry. Drain in place with serous fluid in the bulb. Ext - no pedal edema Psych -normal mood and affect. Skin - warm and dry; no diaphoresis Objective Data Vital Signs Vital Signs: Vital Signs - 24 hr 09/10/19 22:00 09/11/19 05:53 09/11/19 14:00 Temperature 98 F 97.2 F L 98.3 F Pulse Rate 75 77 77 Respiratory Rate 18 20 16 Blood Pressure 136/73 129/74 124/74 Pulse Oximetry 100 97 100 Intake/Output Intake/Output: Intake & Output 09/08/19 09/09/19 09/10/19 09/11/19 23:59 23:59 23:59 23:59 Intake Total 1650 2350 2320 2150 Output Total 290 2450 3380 2955 Balance 1360 -100 -1060 -805 Meds/Results Medications: Active Medications Generic Name Dose Route Start Last Admin Trade Name Freq PRN Reason Stop Dose Admin Folic Acid 1 mg 09/11/19 09:00 09/11/19 10:00 Folic Acid Inj IV PUSH 1 mg QAM HERMINIA Administration Dextrose/Lactated Ringer's 1,000 mls @ 100 mls/hr 09/08/19 18:45 09/11/19 16:30 Dextrose 5%/Lactated Ringers IV CONT 100 mls/hr .Q10H HERMINIA Administration Piperacillin/Tazobactam/Dextrose 3.375 gm in 50 mls @ 100 mls/hr 09/09/19 00:00 09/11/19 17:43 Zosyn 3.375 Gm/D5w 50ml Pm IVPB 100 mls/hr Q6HR HERMINIA Administration Lorazepam 1 mg 09/10/19 12:45 Ativan Inj IV PUSH Q6H PRN For CIWA >10 Morphine Sulfate 2 mg 09/08/19 18:45 09/09/19 23:59 Morphine Sulfate Inj IV PUSH 2 mg Q4H PRN Administration Pain Rated 7-10 Pantoprazole Sodium 40 mg 09/09/19 09:00 09/11/19 09:29 Protonix Iv IV PUSH 40 mg Q12HR HERMINIA Administration Thiamine HCl 100 mg 09/11/19 09:00 09/11/19 09:35 Thiamine Hcl Inj IV PUSH 100 mg QAM HERMINIA Administration Radiology Results: ITS Impressions Abdomen/Pelvis CT 09/08/19 15:26 IMPRESSION: Moderate amount of free intraperitoneal gas with source most likely the gastric cardia, most likely perforated peptic ulcer disease. Gastric cancer much less likely given patient's age. Labs Labs: Laboratory Results - last 24 hr 09/11/19 09/11/19 04:47 04:47 WBC 8.1 RBC 4.76 Hgb 14.0 Hct 42.3 MCV 88.9 MCH 29.4 MCHC 33.1 RDW 12.3 Plt Count 268 MPV 10.3 Sodium 137 Potassium 3.6 Chloride 104 Carbon Dioxide 25 BUN 7 L Creatinine 0.60 L Estim Creat Clear Calc 177 Estimated GFR > 60 Glucose 104 Calcium 8.4
[2019-09-11 20:55] VITALS: BP 126/74; PULSE 76; RESP 20; TEMP 36.6; O2SAT 100
[2019-09-12] MEDS: DEXTROSE 5%/LACTATED RINGERS 1,000 ML 100 ML IV CONT ×3 (03:28→23:59)
[2019-09-12 05:46] VITALS: BP 130/76; PULSE 70; RESP 20; TEMP 36.3; O2SAT 98
[2019-09-12 06:24] LABS: Hematocrit 41.1 % (42.0-52.0); Mean Corpuscular HGB Conc 34.1 g/dl (32-36); Mean Corpuscular Hemoglobin 29.6 pg (26-34); Mean Corpuscular Volume 86.9 fl (80-100); Mean Platelet Volume 9.6 fl (7.4-10.4); Platelet Count Result 292 k/mm3 (150-375); Red Blood Count 4.73 M/mm3 (4.6-6.20); White Blood Count 6.8 K/mm3 (4.5-10.0)
--- NOTE | 2019-09-12 06:26 | PM.PNGS ---
Progress Note: A&P Assessment and Plan (1) Perforated gastric ulcer: Code(s): K25.5 - Chronic or unspecified gastric ulcer with perforation Status: Acute Assessment and Plan: Continues to improve. Will DC NG tube and KATTY drain. Start on clear liquids. Continue IV Protonix and IV antibiotics. Subjective Subjective Date/Time Seen: 09/12/19 06:26 Post Op day: 4 Patient reports: no new complaints, feels better and afebrile Review of Systems Review of Systems: All systems reviewed & are unremarkable except as noted in HPI and below Constitutional: Constitutional: Denies headache(s) ENT: Denies headache(s) Cardiovascular: Cardiovascular: Denies chest pain and Denies dyspnea Respiratory: Respiratory: Denies cough and Denies dyspnea Gastrointestinal: Gastrointestinal: Reports as per HPI Neurologic: Denies confusion and Denies headache(s) Psychiatric: Psychiatric: Denies confusion Exam Const: General: comfortable and no acute distress; No confusion Orientation/consciousness: patient oriented x3 and No confusion GI: Inspection: non-distended and incision (Healing well. Minimal serous fluid in KATTY drain) GI Palp: Yes Soft to palpation, Yes Tenderness to palpation present (GI) (Minimal appropriate tenderness), No Guarding due to palpation present (GI) and No Rebound tenderness present Auscultation: normal bowel sounds Neuro: General: patient oriented x3, no focal motor deficits and No confusion Extrem: General: no calf tenderness and no edema Psych: Affect: normal affect Insight: Good insight present (Psych) Judgement: Good judgement present (Psych) Objective Data Vital Signs Vital Signs: Vital Signs - 24 hr 09/11/19 14:00 09/11/19 20:55 09/12/19 05:46 Temperature 36.8 C 36.6 C 36.3 C L Pulse Rate 77 76 70 Respiratory Rate 16 20 20 Blood Pressure 124/74 126/74 130/76 Pulse Oximetry 100 100 98 Intake/Output Intake/Output: Intake & Output 09/09/19 09/10/19 09/11/19 09/12/19 23:59 23:59 23:59 23:59 Intake Total 2350 2320 2381 869 Output Total 2450 3380 2957 950 Balance -100 -1060 -574 -81 Meds/Results Medications: Active Medications Generic Name Dose Route Start Last Admin Trade Name Freq PRN Reason Stop Dose Admin Folic Acid 1 mg 05/13/20 09:00 09/11/19 10:00 Folic Acid Inj IV PUSH 1 mg QAM HERMINIA Administration Dextrose/Lactated Ringer's 1,000 mls @ 100 mls/hr 09/08/19 18:45 09/12/19 03:28 Dextrose 5%/Lactated Ringers IV CONT 100 mls/hr .Q10H HERMINIA Administration Piperacillin/Tazobactam/Dextrose 3.375 gm in 50 mls @ 100 mls/hr 09/09/19 00:00 09/12/19 05:40 Zosyn 3.375 Gm/D5w 50ml Pm IVPB 100 mls/hr Q6HR HERMINIA Administration Lorazepam 1 mg 09/10/19 12:45 Ativan Inj IV PUSH Q6H PRN For CIWA >10 Morphine Sulfate 2 mg 09/08/19 18:45 09/09/19 23:59 Morphine Sulfate Inj IV PUSH 2 mg Q4H PRN Administration Pain Rated 7-10 Pantoprazole Sodium 40 mg 09/09/19 09:00 09/11/19 20:35 Protonix Iv IV PUSH 40 mg Q12HR HERMINIA Administration Thiamine HCl 100 mg 09/11/19 09:00 09/11/19 09:35 Thiamine Hcl Inj IV PUSH 100 mg QAM HERMINIA Administration Radiology Results: ITS Impressions Abdomen/Pelvis CT 09/08/19 15:26 IMPRESSION: Moderate amount of free intraperitoneal gas with source most likely the gastric cardia, most likely perforated peptic ulcer disease. Gastric cancer much less likely given patient's age. Labs Labs: Laboratory Results - last 24 hr 09/12/19 05:57 WBC 6.8 RBC 4.73 Hgb 14.0 Hct 41.1 L MCV 86.9 MCH 29.6 MCHC 34.1 RDW 12.0 Plt Count 292 MPV 9.6
[2019-09-12 06:42] LABS: Blood Urea Nitrogen 10 mg/dL (9-20); Calcium 8.6 mg/dL (8.4-10.2); Carbon Dioxide 28 mmol/L (22-30); Chloride 103 mmol/L (98-107); Estimated CRCL calculation 154 ml/min; Estimated Glomerular Filt Rate > 60; Glucose 107 mg/dL (75-110); Potassium 3.5 mmol/L (3.4-5.0); Sodium 137 mmol/L (137-145)
[2019-09-12] MEDS: FOLIC ACID 1 MG/0.2 ML INJ IV PUSH (08:10)
[2019-09-12] MEDS: THIAMINE HCL 200 MG/2 ML VIAL 100 MG IV PUSH (08:10)
[2019-09-12] MEDS: PANTOPRAZOLE SODIUM IV 40 MG VIAL IV PUSH ×2 (08:10→20:55)
--- NOTE | 2019-09-12 09:15 | PM.IMPN ---
Progress Note: A&P Assessment and Plan (1) Perforated gastric ulcer: Qualifiers: Gastric ulcer chronicity: acute Qualified Code(s): K25.1 - Acute gastric ulcer with perforation Code(s): K25.5 - Chronic or unspecified gastric ulcer with perforation Status: Acute Assessment and Plan: Patient with gastric ulcer s/p repair. Appears to be recovering well. Pain controlled. Continue Zosyn. Continue Protonix. NG tube removed and diet started. Continue to monitor. (2) ETOH abuse: Code(s): F10.10 - Alcohol abuse, uncomplicated Status: Acute Assessment and Plan: No evidence of withdrawal symptoms and no hx of such. Continue Thiamine and Folate. Ativan available as needed for signs or symptoms of withdrawal. Patient has been educated again about the benefits of limiting alcohol use. (3) Tobacco use: Code(s): Z72.0 - Tobacco use Status: Acute Assessment and Plan: Patient has been educated again about the benefits of abstaining from all tobacco products. Additional Plan Will sign off. Please contact hospitalist service as needed. Subjective Date/time seen: 09/12/19 09:15 Interval history: 34yo male here for perforated gastric ulcer. Feels well today. Denies abdominal pain. Having flatus but no bowel movements. Was up walking the halls yesterday. Drain has been removed. NG tube was removed today with plans for clear liquid diet. No nausea or vomiting. No diaphoresis or tremors. Exam Narrative: Exam Narrative: Gen - NARD Chest - CTA bilaterally, nml RR CV - RRR S1/S2 Abd -soft. Midline incision is clean and dry. Drain has been removed. Ext - no pedal edema Psych -normal mood and affect. Skin - warm and dry; no diaphoresis Objective Data Vital Signs Vital Signs: Vital Signs - 24 hr 09/11/19 14:00 09/11/19 20:55 09/12/19 05:46 Temperature 98.3 F 97.8 F 97.3 F L Pulse Rate 77 76 70 Respiratory Rate 16 20 20 Blood Pressure 124/74 126/74 130/76 Pulse Oximetry 100 100 98 Intake/Output Intake/Output: Intake & Output 09/09/19 09/10/19 09/11/19 09/12/19 23:59 23:59 23:59 23:59 Intake Total 2350 2320 2381 1919 Output Total 2450 3380 2955 1150 Balance -100 -1060 -574 769 Meds/Results Medications: Active Medications Generic Name Dose Route Start Last Admin Trade Name Yusuf PRN Reason Stop Dose Admin Folic Acid 1 mg 09/11/19 09:00 09/12/19 08:10 Folic Acid Inj IV PUSH 1 mg QAM HERMINIA Administration Dextrose/Lactated Ringer's 1,000 mls @ 100 mls/hr 09/08/19 18:45 09/12/19 07:03 Dextrose 5%/Lactated Ringers IV CONT Infused .Q10H HERMINIA Infusion Piperacillin/Tazobactam/Dextrose 3.375 gm in 50 mls @ 100 mls/hr 09/09/19 00:00 09/12/19 07:03 Zosyn 3.375 Gm/D5w 50ml Pm IVPB Infused Q6HR HERMINIA Infusion Lorazepam 1 mg 09/10/19 12:45 Ativan Inj IV PUSH Q6H PRN For CIWA >10 Morphine Sulfate 2 mg 09/08/19 18:45 09/09/19 23:59 Morphine Sulfate Inj IV PUSH 2 mg Q4H PRN Administration Pain Rated 7-10 Pantoprazole Sodium 40 mg 09/09/19 09:00 09/12/19 08:10 Protonix Iv IV PUSH 40 mg Q12HR HERMINIA Administration Thiamine HCl 100 mg 09/11/19 09:00 09/12/19 08:10 Thiamine Hcl Inj IV PUSH 100 mg QAM HERMINIA Administration Radiology Results: ITS Impressions Abdomen/Pelvis CT 09/08/19 15:26 IMPRESSION: Moderate amount of free intraperitoneal gas with source most likely the gastric cardia, most likely perforated peptic ulcer disease. Gastric cancer much less likely given patient's age. Labs Labs: Laboratory Results - last 24 hr 09/12/19 09/12/19 05:57 05:57 WBC 6.8 RBC 4.73 Hgb 14.0 Hct 41.1 L MCV 86.9 MCH 29.6 MCHC 34.1 RDW 12.0 Plt Count 292 MPV 9.6 Sodium 137 Potassium 3.5 Chloride 103 Carbon Dioxide 28 BUN 10 Creatinine 0.70 Estim Creat Clear Calc 154 Estimated GFR > 60 Glucose 107 Calcium
--- NOTE | 2019-09-12 12:28 | PCDIET ---
Nutrition Screen for NPO/Clear Day 5 Complete: Goal:Advance diet Pt current nutrition is clear liquids Nutrition recommendation: Agree, recommend ADAT to regular Last recorded weight is 102.3 kg. Bowel Motility: No BM noted. Hypoactive bowel sounds. Pt may benefit from motility agent Labs Reviewed:Labs unremarkable Meds Noted: Agree with thiamine and folate, pt also on zosyn, protonix Additional Notes: Pt with NG removed and tolerating clear liquids. Pt denies n/v at this time and keeping down liquids. Edu provided on menu and ordering. Recommend ADAT to regular when medically appropriate. We will monitor for adequate intake every five days.
[2019-09-12 14:00] VITALS: BP 111/51; PULSE 61; RESP 16; TEMP 36.6; O2SAT 96
[2019-09-12 22:00] VITALS: BP 130/66; PULSE 66; RESP 20; TEMP 36.6; O2SAT 99
[2019-09-13 05:53] LABS: Hematocrit 39.7 % (42.0-52.0); Hemoglobin 13.4 g/dL (14.0-18.0); Mean Corpuscular HGB Conc 33.8 g/dl (32-36); Mean Corpuscular Hemoglobin 29.3 pg (26-34); Mean Corpuscular Volume 86.7 fl (80-100); Mean Platelet Volume 9.5 fl (7.4-10.4); Platelet Count Result 304 k/mm3 (150-375); Red Blood Count 4.58 M/mm3 (4.6-6.20); Red Cell Distribution Width 12.2 % (11.5-14.5); White Blood Count 6.7 K/mm3 (4.5-10.0)
[2019-09-13 05:59] VITALS: BP 128/78; PULSE 73; RESP 20; TEMP 36.6; O2SAT 97
[2019-09-13 06:21] LABS: Blood Urea Nitrogen 6 mg/dL (9-20); Calcium 8.4 mg/dL (8.4-10.2); Carbon Dioxide 28 mmol/L (22-30); Chloride 104 mmol/L (98-107); Estimated CRCL calculation 154 ml/min; Estimated Glomerular Filt Rate > 60; Glucose 100 mg/dL (75-110); Potassium 3.9 mmol/L (3.4-5.0); Sodium 138 mmol/L (137-145)
--- NOTE | 2019-09-13 07:34 | PM.PNGS ---
Progress Note: A&P Assessment and Plan (1) Perforated gastric ulcer: Qualifiers: Gastric ulcer chronicity: acute Qualified Code(s): K25.1 - Acute gastric ulcer with perforation Code(s): K25.5 - Chronic or unspecified gastric ulcer with perforation Status: Acute Assessment and Plan: Continue to improve well. Will advance to soft diet. Changed from IV Protonix to p.o. Protonix. Continue IV antibiotics. Probably home tomorrow. Subjective Subjective Date/Time Seen: 09/13/19 07:34 No complaints. Tolerated liquids well. Exam GI: Inspection: non-distended and incision (Healing well.) GI Palp: Yes Soft to palpation and Yes Tenderness to palpation present (GI) (Minimal appropriate tenderness) Auscultation: normal bowel sounds Objective Data Vital Signs Vital Signs: Vital Signs - 24 hr 09/12/19 14:00 09/12/19 22:00 09/13/19 05:59 Temperature 36.6 C 36.6 C 36.6 C Pulse Rate 61 66 73 Respiratory Rate 16 20 20 Blood Pressure 111/51 L 130/66 128/78 Pulse Oximetry 96 99 97 Intake/Output Intake/Output: Intake & Output 09/10/19 09/11/19 09/12/19 09/13/19 23:59 23:59 23:59 23:59 Intake Total 2320 2381 5729 390 Output Total 3380 2955 2150 800 Balance -1060 -574 3579 -410 Meds/Results Medications: Active Medications Generic Name Dose Route Start Last Admin Trade Name Freq PRN Reason Stop Dose Admin Folic Acid 1 mg 09/11/19 09:00 09/12/19 08:10 Folic Acid Inj IV PUSH 1 mg QAM HERMINIA Administration Piperacillin/Tazobactam/Dextrose 3.375 gm in 50 mls @ 100 mls/hr 09/09/19 00:00 09/13/19 06:46 Zosyn 3.375 Gm/D5w 50ml Pm IVPB Infused Q6HR HERMINIA Infusion Lorazepam 1 mg 09/10/19 12:45 Ativan Inj IV PUSH Q6H PRN For CIWA >10 Morphine Sulfate 2 mg 09/08/19 18:45 09/09/19 23:59 Morphine Sulfate Inj IV PUSH 2 mg Q4H PRN Administration Pain Rated 7-10 Pantoprazole Sodium 40 mg 09/13/19 09:00 Protonix PO QAM HERMINIA Thiamine HCl 100 mg 09/11/19 09:00 09/12/19 08:10 Thiamine Hcl Inj IV PUSH 100 mg QAM HERMINIA Administration Radiology Results: ITS Impressions Abdomen/Pelvis CT 09/08/19 15:26 IMPRESSION: Moderate amount of free intraperitoneal gas with source most likely the gastric cardia, most likely perforated peptic ulcer disease. Gastric cancer much less likely given patient's age. Labs Labs: Laboratory Results - last 24 hr 09/13/19 09/13/19 05:39 05:39 WBC 6.7 RBC 4.58 L Hgb 13.4 L Hct 39.7 L MCV 86.7 MCH 29.3 MCHC 33.8 RDW 12.2 Plt Count 304 MPV 9.5 Sodium 138 Potassium 3.9 Chloride 104 Carbon Dioxide 28 BUN 6 L Creatinine 0.70 Estim Creat Clear Calc 154 Estimated GFR > 60 Glucose 100 Calcium 8.4
[2019-09-13] MEDS: THIAMINE HCL 200 MG/2 ML VIAL 100 MG IV PUSH (08:24)
[2019-09-13] MEDS: FOLIC ACID 1 MG/0.2 ML INJ IV PUSH (08:30)
[2019-09-13] MEDS: PANTOPRAZOLE 40 MG TABLET PO (09:25)
[2019-09-13 14:00] VITALS: BP 125/62; PULSE 69; RESP 18; TEMP 36.8; O2SAT 100
[2019-09-13 22:00] VITALS: BP 117/69; PULSE 72; RESP 12; TEMP 36.4; O2SAT 100
[2019-09-14 05:36] LABS: Hematocrit 40.6 % (42.0-52.0); Hemoglobin 13.6 g/dL (14.0-18.0); Mean Corpuscular HGB Conc 33.5 g/dl (32-36); Mean Corpuscular Hemoglobin 29.5 pg (26-34); Mean Corpuscular Volume 88.1 fl (80-100); Mean Platelet Volume 9.7 fl (7.4-10.4); Platelet Count Result 300 k/mm3 (150-375); Red Blood Count 4.61 M/mm3 (4.6-6.20); Red Cell Distribution Width 12.4 % (11.5-14.5); White Blood Count 5.6 K/mm3 (4.5-10.0)
[2019-09-14 05:53] LABS: Blood Urea Nitrogen 6 mg/dL (9-20); Calcium 8.5 mg/dL (8.4-10.2); Carbon Dioxide 28 mmol/L (22-30); Chloride 103 mmol/L (98-107); Estimated CRCL calculation 177 ml/min; Estimated Glomerular Filt Rate > 60; Glucose 95 mg/dL (75-110); Potassium 3.8 mmol/L (3.4-5.0); Sodium 137 mmol/L (137-145)
[2019-09-14 06:00] VITALS: BP 125/65; PULSE 67; RESP 18; TEMP 36.3; O2SAT 99
[2019-09-14] MEDS: THIAMINE HCL 200 MG/2 ML VIAL 100 MG IV PUSH (08:30)
[2019-09-14] MEDS: FOLIC ACID 1 MG/0.2 ML INJ IV PUSH (08:31)
[2019-09-14] MEDS: PANTOPRAZOLE 40 MG TABLET PO (08:31)
--- NOTE | 2019-09-14 08:53 | PM.DS ---
DS: Diagnosis Admitting Diagnosis Admitting Diagnosis: Other specified disorders of peritoneum Discharge Diagnosis (1) Perforated gastric ulcer: Qualifiers: Gastric ulcer chronicity: acute Qualified Code(s): K25.1 - Acute gastric ulcer with perforation Code(s): K25.5 - Chronic or unspecified gastric ulcer with perforation Status: Acute Assessment and Plan: Repair and omental patch placed September 08, 2019 (2) Tobacco use: Code(s): Z72.0 - Tobacco use Status: Acute (3) ETOH abuse: Code(s): F10.10 - Alcohol abuse, uncomplicated Status: Acute Assessment and Plan: hospitalist service saw him in consultation. No symptoms of withdrawal presented during the admission. DS: Summary Time Spent with Patient Time attestation: Total time spent providing and/or coordinating discharge services: patient is a 34-year-old man who presented to the emergency room on September 07 with acute severe epigastric abdominal pain. CT scan suggested bowel perforation with free intraperitoneal air. He was seen by Dr. Serrano. He was taken to surgery and no clear site of the perforation was able to be found. There was a small possible opening in the stomach which was oversewn and an omental patch was placed. Thorough operative exploration was carried out. Postoperatively, the patient was treated as a gastric perforation from ulcer. He was on IV Protonix twice a day until eating. He was also on IV Zosyn. Patient has a history of heavy alcohol use. The hospitalist service was consulted to evaluate for symptoms of withdrawal and management of any that should present. Fortunately he did not require any treatment of withdrawal syndrome. The patient had an NG tube until postop day number 3. He was started on liquids and gradually advance to solid food. He ate well without problems or complaints. He was not taking any oral analgesics. His venessa were removed and Steri-Strips were placed on the day of discharge. He was able to be discharged on postop day #6, 09/14/2019 in good condition. DS: Data Data Completed and Pending Labs on day of discharge: Labs from last 24 hours 09/14/19 09/14/19 05:28 05:28 WBC 5.6 RBC 4.61 Hgb 13.6 L Hct 40.6 L MCV 88.1 MCH 29.5 MCHC 33.5 RDW 12.4 Plt Count 300 MPV 9.7 Sodium 137 Potassium 3.8 Chloride 103 Carbon Dioxide 28 BUN 6 L Creatinine 0.60 L Estim Creat Clear Calc 177 Estimated GFR > 60 Glucose 95 Calcium 8.5 Discharge Plan Discharge Attending physician on discharge: Andie Serrano Consulting providers: Jorge Wilhelm Discharging Clinician: Emery Page Anticipated Discharge Date/Time: 09/14/19 08:58 Patient Disposition: Home, Self-Care Activity: may shower, no straining and as tolerated Diet: regular Wound Care Instructions: incision open to air Discharge Instructions: Ambulate 3-4 x per day and as tolerated. No lifting over 15-20lbs. May bathe or shower. Stairs are OK. May drive a car in 3 days. Patient Instructions: Antibiotic Form, [place] Catheter Placement and Care (DC) Stand Alone Forms: General Discharge Information Follow-up/Referrals: Andie Serrano MD [Physician] - 2 Weeks Discharge Medications: New amoxicillin-pot clavulanate [Augmentin] 875-125 mg tablet 1 tablet PO Q12H Qty: 4 RF: 0 pantoprazole [Protonix] 40 mg tablet,delayed release (DR/EC) 40 mg PO QAM 42 Days Qty: 42 RF: 0 No Action No Home Medications RF: 0 Date of admission: 09/08/19 20:23 Primary Care Provider: UNKNOWN,DOCTOR Admitting Provider: Andie Serrano Attending physician on admission: Andie Serrano Condition: Stable
== END 2019-09-14 11:45 | disposition home or self-care (01) | DRG 220 ==
LOC: ANHED 15:33 → ANHSURGERY 16:01 → ANH2MED 23:29
PROVIDERS: Admitting Provider Surgery; Emergency Provider Emergency Medicine; Visit Provider Surgery
PROC: 0DQ60ZZ Repair Stomach, Open Approach (ICD-10-PCS; CPT 49000; principal; 2019-09-08 17:30)
DX: K25.1 Acute gastric ulcer with perforation (principal); F10.10 Alcohol abuse, uncomplicated; E66.9 Obesity, unspecified; Z68.33 Body mass index [BMI] 33.0-33.9, adult; Z87.891 Personal history of nicotine dependence
CPT/HCPCS: 36415; 74177; 80048; 80053; 81001; 83690; 85025; 85027; 96361; 96365; 96375; 99285; A9270; C9113; J0131; J0330; J1170; J2250; J2270; J2405; J2543; J2704; J2710; J3010; J3411; J7030; J7120; J7121; Q9967; Q9968

== ENCOUNTER 2022-11-06 21:41 | Emergency (ER) | payer SELFPAY ==
[2022-11-06 21:43] VITALS: BP 145/82; PULSE 89; RESP 18; TEMP 36.4; O2SAT 100
[2022-11-06 21:58] VITALS: BP 135/88; PULSE 85; RESP 21; O2SAT 100
[2022-11-06] MEDS: SODIUM CHLORIDE 0.9% IV 1,000 ML 999 ML IV CONT (22:10)
--- NOTE | 2022-11-06 22:12 | PC.NURSE ---
Pt denies nausea at this time. Alessandra garcia, FERNANDA Wiley notified.
--- NOTE | 2022-11-06 22:14 | ED.GENADULT ---
HPI - General Adult General Chief complaint: Dizziness Stated complaint: dizziness, vomiting blood Time Seen by Provider: 11/06/22 21:55 History of Present Illness HPI narrative: Patient 37-year-old gentleman who presents the emergency department with chief complaint of lightheadedness. Patient reports that last night he drank a little alcohol then this morning felt count of weak and then felt nauseated started retching and had a small amount of blood in his emesis. The patient reports that he has had a perforated ulcer in the past but reports that his abdomen is not tender reports no pain at this time and actually reports the nausea is doing better Related Data Allergies Allergy/AdvReac Type Severity Reaction Status Date / Time No Known Allergies Allergy Verified 11/06/22 21:42 Review of Systems Review of Systems: A 10 system review of systems was completed on the patient and is negative except for what is stated in the HPI. Nursing and ancillary documentation was reviewed. [facility] Past Medical History Medical History ETOH abuse Overweight Surgical History Surgical History History of exploratory laparotomy mobilization stomach, duodenum, repair of perforated gastric ulcer 09/08/19 No significant past surgical history Family History Family History Grandparent Lung cancer Cancer Social History Social History Social History: Lives alone. Single. Quit smoking 6 months ago but now using smokeless tobacco. Alcohol use as above. Full code. Smoking packs per day: 1 Smoking cigarettes per day: 20.0 Years smoked: 16 Smoking pack-years: 16.00 Smoking status: Former smoker Tobacco type: cigarettes Alcohol intake: current Drinks per week: 18 Substance use: never Substance use type: does not use Gender identity (if verbalized by the patient): Male Spiritual care concerns: No Exam Narrative: GENERAL: Well-appearing, well-nourished, and in no acute distress. HEAD: Normocephalic, atraumatic. EYES: PERRLA and EOMI. ENT: Nares clear, no rhinorrhea or epistaxis. Mucous membranes moist. NECK: Supple. CHEST: Clear to auscultation. No respiratory distress. HEART: Regular rate and rhythm. No murmur heard. Normal peripheral pulses. ABDOMEN: Soft, nontender, nondistended, normal active bowel sounds. EXTREMITIES: Normal range of motion. No edema. SKIN: Warm, dry, no rash. NEURO: No focal deficits. Alert and oriented x3. PSYCH: Normal mood and affect. Course Vital Signs Vital signs: Vital Signs Temperature 36.4 C 11/06/22 21:43 Pulse Rate 89 11/06/22 21:43 Respiratory Rate 18 11/06/22 21:43 Blood Pressure 145/82 H 11/06/22 21:43 Pulse Oximetry 100 11/06/22 21:43 Oxygen Delivery Room Air 11/06/22 21:43 Temperature 36.4 C 11/06/22 21:43 Pulse Rate 85 11/06/22 21:58 Respiratory Rate 21 H 11/06/22 21:58 Blood Pressure 135/88 11/06/22 21:58 Pulse Oximetry 100 11/06/22 21:58 Oxygen Delivery Room Air 11/06/22 21:43 Medical Decision Making Vital Signs Vital Signs: Vital Signs Temperature 36.4 C 11/06/22 21:43 Pulse Rate 89 11/06/22 21:43 Respiratory Rate 18 11/06/22 21:43 Blood Pressure 145/82 H 11/06/22 21:43 Pulse Oximetry 100 11/06/22 21:43 Oxygen Delivery Room Air 11/06/22 21:43 Temperature 36.4 C 11/06/22 21:43 Pulse Rate 85 11/06/22 21:58 Respiratory Rate 21 H 11/06/22 21:58 Blood Pressure 135/88 11/06/22 21:58 Pulse Oximetry 100 11/06/22 21:58 Oxygen Delivery Room Air 11/06/22 21:43 Lab Data 11/06/22 22:13 11/06/22 22:13 Labs: Lab Results 11/06/22 Range/Units 22:13 WBC 11.5 H (4.5-10.0) K/m
[2022-11-06 22:20] LABS: Basophils Absolute Auto 0.1 K/mm3 (0.0-0.1); Basophils Percent Auto 0.6 % (0.2-1.2); Eosinophils Absolute Auto 0.1 K/mm3 (0-0.3); Eosinophils Percent Auto 0.8 % (0-4.4); Hematocrit 43.6 % (42.0-52.0); Hemoglobin 14.8 g/dL (14.0-18.0); Immature Granulocyte Absolute 0.13 K/mm3 (0.00-0.031); Immature Granulocyte Percent A 1.1 % (0-0.5); Lymphocytes Absolute Auto 1.71 K/mm3 (0.9-3.2); Lymphocytes Percent Auto 14.9 % (18.3-44.2); Mean Corpuscular HGB Conc 33.9 g/dl (32-36); Mean Corpuscular Hemoglobin 29.8 pg (26-34); Mean Corpuscular Volume 87.7 fl (80-100); Mean Platelet Volume 9.9 fl (7.4-10.4); Monocytes Absolute Auto 0.9 K/mm3 (0.1-0.6); Neutrophils Absolute Auto 8.6 K/mm3 (1.3-6.7); Neutrophils Percent Auto 74.6 % (45.5-73.1); Platelet Count Result 264 k/mm3 (150-375); Red Blood Count 4.97 M/mm3 (4.6-6.20); Red Cell Distribution Width 12.7 % (11.5-14.5); White Blood Count 11.5 K/mm3 (4.5-10.0)
[2022-11-06 22:21] LABS: Appearance Urine Clear (Clear); Bilirubin Urine Negative (Negative); Blood Urine Negative (Negative); Color Urine Yellow (Yellow); Glucose Urine UA Negative (Negative); Ketones Urine Negative (Negative); Leukocyte Esterase Ur Negative LEU/UL (Negative); Nitrate Urine Negative (Negative); Protein Urine Negative (Negative); Specific Grav Ur 1.003 (1.001-1.035); Urobilinogen Urine 0.2 mg/dL (<2.0)
[2022-11-06 22:22] LABS: Add Urine Microscopic? NO
[2022-11-06 22:30] LABS: Alanine Aminotransferase 32 U/L (6-50); Albumin Level 4.4 g/dL (3.5-5.1); Alkaline Phosphatase 46 U/L (38-126); Anion Gap 4 mmol/L (8-16); Aspartate Amino Transferase 34 U/L (17-59); Bilirubin,Total 1.8 mg/dL (0.2-1.3); Blood Urea Nitrogen 15 mg/dL (9-20); Calcium 8.4 mg/dL (8.4-10.2); Carbon Dioxide 27 mmol/L (22-30); Chloride 94 mmol/L (98-107); Estimated CRCL calculation 141 ml/min; Estimated Glomerular Filt Rate > 60; Glucose 95 mg/dL (65-110); Lipase 55 U/L (23-300); Potassium 3.5 mmol/L (3.4-5.0); Sodium 125 mmol/L (137-145)
[2022-11-06 23:44] VITALS: BP 128/76; PULSE 76; RESP 19; O2SAT 97
== END 2022-11-06 23:45 | disposition home or self-care (01) ==
PROVIDERS: Emergency Provider Emergency Medicine
DX: K29.70 Gastritis, unspecified, without bleeding (principal); E66.3 Overweight; Z68.35 Body mass index [BMI] 35.0-35.9, adult; F17.220 Nicotine dependence, chewing tobacco, uncomplicated
CPT/HCPCS: 36415; 80053; 81003; 83605; 83690; 85025; 96360; 96361; 99283; J7030